=== PATIENT | male | born 1990 | race Caucasian/White ===

== ENCOUNTER 2024-04-30 10:34 | Emergency (ER) | payer SELFPAY ==
[2024-04-30] MEDS ORDERED: Lidocaine 1% w/Epinephrine 1:100K 20 ML VIAL ONE (11:55)
[2024-04-30] MEDS ORDERED: Bacitracin 1 PK ONE (12:46)
== END 2024-04-30 12:55 | disposition home or self-care (01) ==
LOC: ERS 10:34
DX: S51.812A Laceration without foreign body of left forearm, initial encounter (principal); W26.8XXA Contact with other sharp object(s), not elsewhere classified, initial encounter; Y99.0 Civilian activity done for income or pay
CPT/HCPCS: 12002; 99282

== ENCOUNTER 2024-05-10 09:14 | Emergency (ER) | payer SELFPAY | END 2024-05-10 09:39 | disposition home or self-care (01) | LOC: ERS 09:14 | DX: S51.812D Laceration without foreign body of left forearm, subsequent encounter (principal); Z48.02 Encounter for removal of sutures; X58.XXXD Exposure to other specified factors, subsequent encounter ==